=== PATIENT | female | born 1935 | race Caucasian/White ===

== ENCOUNTER 2017-08-01 13:45 | Inpatient (IN) | payer OTHER, MEDICARE ==
[~2017-08-01] VITALS: Ht 157.5 cm; Wt 59.9 kg
[2017-08-01 14:05] LABS: ABSOLUTE BASOPHIL COUNT 0 /CUMM (0.0-0.2); ABSOLUTE EOSINOPHIL COUNT 0.1 /CUMM (0.0-0.7); ABSOLUTE GRANULOCYTE CT 4.4 /CUMM (1.4-6.5); ABSOLUTE LYMPH COUNT 1.5 /CUMM (1.2-3.4); ABSOLUTE MONOCYTE COUNT 0.7 /CUMM (0.10-0.60); BASOPHIL % 0.5 % (0.0-2.0); GRANULOCYTE % 64.6 % (42.2-75.2); HEMATOCRIT 41.7 % (37-47); MEAN CORPUSCULAR HGB 28.9 PG (27.0-31.0); MEAN CORPUSCULAR HGB CONC 32.9 G/DL (33.0-37.0); MEAN CORPUSCULAR VOLUME 87.8 FL (81.0-99.0); MEAN PLATELET VOLUME 7.5 FL (7.4-10.4); PLATELET COUNT 344 /CUMM (130-400); RED BLOOD CELL CT 4.75 /CUMM (4.20-5.40); WHITE BLOOD CELL COUNT 6.8 /CUMM (4.8-10.8)
--- NOTE | 2017-08-01 14:11 | ED DYSPNEA/ASTHMA COMPLAINT ---
History of Present Illness General Chief Complaint: General Adult Stated Complaint: FROM GI, LOW O2 SATS Source: patient, family Exam Limitations: no limitations Allergies Coded Allergies: Sulfa (Sulfonamide Antibiotics) (Severe, SWELLING 08/01/17) Penicillins (Intermediate, RASH 08/01/17) Triage Note: PT BROUGHT TO ED FROM GI SUITE FOR LOW O2 SATS. PT WAS SCHEDULED FOR ROUTINE COLONOSCOPY TODAY, BUT WHEN NURSES CHECKED HER O2 SATS, THEY WERE IN THE HIGH 70'S TO LOW 80'S. ON ARRIVAL, PT'S O2 SAT 79% WITH STEADY PLETH, NO ACUTE DISTRESS NOTED, PT ABLE TO SPEAK IN FULL SENTENCES. HX OF COPD WITHOUT NEED FOR O2 AT HOME. PLACED ON 2L OF NC OXYGEN WITH IMPROVEMENT TO 90-94%. PT DENIES SOB OR CHEST PAIN; ONLY REPORTS PRODUCTIVE COUGH FOR THE LAST TWO WEEKS. AFEBRILE. Triage Nurses Notes Reviewed? yes Onset: Abrupt Duration: week(s): (2), constant, continues in ED, getting worse Timing: single episode today Severity: mild, moderate Activities at Onset: none Prior Episodes/Possible Cause: occasional episodes Associated Symptoms: cough, wheezing LMP (ages 10-50): post menopausal, unknown : No HPI: 81-year-old female past medical history of colitis, COPD presents for evaluation of hypoxia. Patient was scheduled to get a routine colonoscopy today. When she arrived she had her vitals taken and it was noted that she was hypoxic on room air to the 70s and 80s. Patient was brought in for further evaluation she did not get the colonoscopy. Patient reports that for the past 2 weeks she has had cough wheezing and shortness of breath. She states that symptoms are worse on exertion do get better at rest. She denies fevers. The cough will sometimes be productive of yellow sputum. She is a former smoker. She denies chest pain nausea vomiting sweats chills. She has been using her inhalers without much improvement. (Derick Munoz) Vital Signs & Intake/Output Vital Signs & Intake/Output Vital Signs Date Time Temp Pulse Resp B/P B/P Pulse O2 O2 Flow FiO2 Mean Ox Delivery Rate 08/01 1612 97.7 91 15 122/66 93 Nasal 2.0L Cannula 08/01 1500 96 Nasal 2.0L Cannula 08/01 1351 79 Room Air Room Air 08/01 1350 98.6 93 15 137/70 79 Room Air Room Air (Yris MOSER,Hugh Sheridan) Past History Travel History Traveled to [place] past 21 day No Medical History Any Pertinent Medical History? 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 No (Derick Munoz) Review of Systems Review of Systems Constitutional: Reports: no symptoms. EENTM: Reports: no symptoms. Respiratory: Reports: see HPI, cough, short of breath, sputum production, wheezing. Cardiovascular: Reports: no symptoms. GI: Reports: no symptoms. Genitourinary: Reports: no symptoms. Musculoskeletal: Reports: no symptoms. Skin: Reports: no symptoms. Neurological/Psychological: Reports: no symptoms. Hematologic/Endocrine: Reports: no symptoms. Immunologic/Allergic: Reports: no symptoms. All Other Systems: Reviewed and Negative (Derick Munoz) Physical Exam Physical Exam General Appearance: well developed/nourished, no apparent distress, alert, awake , thin Head: atraumatic, normal appearance Eyes: Bilateral: normal appearance, PERRL, EOMI. Ears, Nose, Throat: normal pharynx, normal ENT inspection, hearing grossly normal Neck: normal inspection, supple, full range of motion Respiratory: chest non-tender, no respiratory distress, quiet respiration, decreased breath sounds, wheezing Cardiovascular: regular rate/rhythm, normal peripheral pulses Peripheral Pulses: 2+ radial (R), 2+ radial (L) Gastrointestinal: soft, non-tender Extremities: normal inspection, normal capillary refill, normal range of motion, no edema Neurologic/Psych: no motor/sensory deficits, awake, alert, oriented x 3 Skin: intact, normal color, warm/dry Core Measures ACS in differential dx? No CVA/TIA Diagnosis No Sepsis Present: No Sepsis Focused Exam Completed? No (Derick Munoz) Progress Differential Diagnosis: asthma, AMI, bronchitis, costochondritis, CHF, COPD, pulmonary embolism, pneumonia, pneumothorax, rib fracture, unstable angina Diagnostic Imaging: Viewed by Me: Radiology Read. Discussed w/RAD: Radiology Read. Radiology Impression: PATIENT: BRICE BAPTISTE PRESENT AGE: 81 PATIENT ACCOUNT NO: [id number] : 34 LOCATION: [facility] ORDERING PHYSICIAN: Derick MCGEE SERVICE DATE: 08/01/17547 EXAM TYPE: CAT - CTA CHEST-PULMONARY EMBOLISM EXAMINATION: CT ANGIOGRAM OF THE CHEST WITH AND WITHOUT CONTRAST (CT PULMONARY ANGIOGRAM FOR PE) CLINICAL INFORMATION: Pneumonia. Hypoxia. COMPARISON: Chest x-ray most recent prior dated 08/01/2017 TECHNIQUE: Prior to contrast administration, noncontrast localization images were obtained. Subsequently, multidetector volumetric imaging was performed from the thoracic inlet to below the diaphragms following the administration of 70 mL Optiray 320 intravenous contrast. No contrast reaction reported. Sagittal, coronal, and MIP oblique sagittal reformatted images were obtained on the CT workstation, uploaded to PACS, and reviewed. Total exam dose-length product 310.89 mGy-cm. FINDINGS: QUALITY OF STUDY/CONTRAST BOLUS: Satisfactory PULMONARY ARTERIES: No central or segmental pulmonary emboli. THORACIC AORTA: Atherosclerotic disease of the aorta and mild atherosclerosis of the coronary arteries. LUNG: Emphysematous changes with upper lobe predominance. Subtle peribronchial vascular nodule right upper lobe (series 2 image 81) measuring approximately 0.5 cm. Differential possibility includes mucous plugging. Subtle peribronchial vascular nodule right lower lobe perihilar region measuring 0.7 cm (series 2 image 250). Assessment of the lower lobes is degraded by patient motion. Very bronchovascular soft tissue thickening noted in the right hilar/ infrahilar region along the bronchi. Differential possibility includes prominence of the lymphoid tissue. Atelectatic changes noted in the right base. Mild bronchiectatic changes bilateral lungs. PLEURA: No pleural effusion or pneumothorax. MEDIASTINUM: Mild cardiomegaly. Mild prominence of the lymphoid tissue suspected in right hilar and infrahilar region as detailed. There is mild prominence of the thyroid gland. Suggestion of a small right thyroid nodule. No evidence of septal bowing or right heart strain. CHEST WALL/AXILLA: No axillary or internal mammary lymphadenopathy. OSSEOUS STRUCTURES: Bony osteopenia. Scoliosis. No acute or suspicious osseous abnormality. Degenerative changes of the thoracic and lumbar spine. UPPER ABDOMEN: Large simple appearing cystic structure medial aspect left kidney measuring 4.2 cm. No reflux of contrast into the hepatic veins to suggest elevated right heart pressures. IMPRESSION: 1. There is no CTA evidence of acute pulmonary embolism. Assessment is limited in the lower lobes due to motion degradation. 2. Pulmonary emphysema. Peribronchovascular nodules right upper lobe and right lower lobe. Mild prominence of the soft tissue likely representing lymphoid tissue noted in the right hilar and infrahilar region along the bronchi. This appearance can be seen with inflammatory etiology. Neoplastic process cannot be excluded. Based on the Fleischner criteria close monitoring with follow-up CT scan in 3-6 months recommended.. 3. Underlying emphysematous changes. 4. Mild bronchiectasis. 5. Atelectatic changes posterior aspect right lower lobe. VTE: negative DICTATED BY : Tara Church MD DATE/TIME DICTATED:08/01/171543 PARK NATURALIST:CHON DATE/TIME TRANSCRIBED:08/01/171543 CONFIDENTIAL, DO NOT COPY WITHOUT APPROPRIATE AUTHORIZATION. <Electronically signed in Other Vendor System> SIGNED BY: Tara Church MD 08/01/17 1619 CXR Impression: PATIENT: BRICE BAPTISTE PRESENT AGE: 81 PATIENT ACCOUNT NO: [id number] : 34 LOCATION: [facility] ORDERING PHYSICIAN: Derick MCGEE SERVICE DATE: 08/01/17 EXAM TYPE: RAD - XRY- PORTABLE CHEST XRAY EXAMINATION: XR PORTABLE CHEST CLINICAL INFORMATION: Hypoxia and cough COMPARISON: October 25, 2009 TECHNIQUE: Portable frontal view of the chest was obtained. FINDINGS: The cardiomediastinal silhouette is unchanged with similar prominence of the right superior mediastinum likely related to vasculature. No significant cardiomegaly. There are interstitial and airspace opacities in the bilateral lower lobes. No focal pleural effusion. No acute osseous abnormality. IMPRESSION: Interstitial and airspace opacities in the bilateral lower lobes. Findings could represent pulmonary edema. Aspiration can have a similar distribution. Infectious process not entirely excluded. DICTATED BY: Wendy Kenney MD DATE/TIME DICTATED:08/01/171424 PARK NATURALIST: CHON DATE/TIME TRANSCRIBED:08/01/171424 CONFIDENTIAL, DO NOT COPY WITHOUT APPROPRIATE AUTHORIZATION. <Electronically signed in Other Vendor System> Initial ED EKG: normal sinus rhythm, LVH, LEFT ATRIAL ABN (Derick Munoz) Plan of Care: Orders Procedure Date/time Status Regular Diet 08/01 D Active Patient Data 08/01 1656 Active Add-on Test (ER Only) 08/01 1511 Active B-TYPE NATRIURETIC PEP (BNP) 08/01 1355 Complete TROPONIN LEVEL 08/01 1351 Complete D-DIMER 08/01 1351 Complete COMPREHENSIVE METABOLIC PANEL 08/01 135 Complete CBC WITHOUT DIFFERENTIAL 08/01 1351 Complete EKG 08/01 1351 Active Current Medications Sig/Nhung Start time Last Medication Dose Stop Time Status Admin Azithromycin 500 MG ONCE ONE 08/01 1645 AC (Zithromax) 08/01 1744 Sodium Chloride 250 ML (Normal Saline 0.9%) Laboratory Tests 08/01/17 1355: Anion Gap 10, Estimated GFR > 60, BUN/Creatinine Ratio 20.0, Glucose 79, Calcium 9.3, Total Bilirubin 0.6, AST 20, ALT 14, Alkaline Phosphatase 81, Troponin I < 0.01, Gli-M-Qlaieyautfz Pept 573 H, Total Protein 6.8, Albumin 3.5, Globulin 3.3, Albumin/Globulin Ratio 1.1, D-Dimer High Sensitivty 366 H, CBC w Diff NO MAN DIFF REQ, RBC 4.75, MCV 87.8, MCH 28.9, MCHC 32.9 L, RDW 15.0 H, MPV 7.5, Gran % 64.6, Lymphocytes % 22.8, Monocytes % 10.1 H, Eosinophils % 2.0, Basophils % 0.5, Absolute Granulocytes 4.4, Absolute Lymphocytes 1.5, Absolute Monocytes 0.7 H, Absolute Eosinophils 0.1, Absolute Basophils 0 Patient seen and evaluated. She was brought in from the GI suite with hypoxia. Her initial evaluation here shows a oxygen saturation of 79% on room air. No signs of wrist or distress. Patient does have diffusely diminished breath sounds with mild wheezing. Vitals otherwise stable. She has a known history of COPD reports cough and shortness of breath for 2 weeks. Labs EKG chest x-ray ordered. Chest x-ray initially suggested pulmonary edema versus infectious infiltrate. Patient's BNP is 573 she has no documented history of CHF she has no lower extremity edema. A CTA was ordered for further evaluation which was negative for PE and also did not show any pulmonary edema. The CTA did show some reactive lymphoid tissue that radiologist feels likely is related to an inflammatory process but NEOplasm is not excluded. Suspect most the patient's symptoms are coming from COPD exacerbation. Patient was medicated with DuoNeb's Solu-Medrol and Zithromax here. When oxygen is removed patient desats again to the 80s. On 2 L nasal cannula she is able to maintain a saturation in the mid 90s. Patient will be admitted to the hospital for further evaluation of a COPD exacerbation. (Derick Munoz) (Yris MOSER,Hugh Sheridan) Departure Departure Disposition: STILL A PATIENT Condition: Stable Clinical Impression Primary Impression: COPD exacerbation Referrals: Shankar MOSER,Munir Ramsey (PCP/Family) Departure Forms: Customer Survey General Discharge Information Admission Note Spoke With: Noy Fajardo MD Documentation of Exam: Documentation of any treatments & extenuating circumstances including Concerns Regarding Discharge (functional status, medication knowledge or non-compliance, living conditions, etc.) that warrant an admission rather than observation: She has hypoxic to 80% on room air. [DuoNeb's, IV steroids, IV antibiotics, pulmonology, oxygen setup, medication adjustment] (Derick Munoz) PA/COMPLEX DIRECTOR Co-Sign Statement Statement: ED Attending supervision documentation- [X] I saw and evaluated the patient. I have also reviewed all the pertinent lab results and diagnostic results. I agree with the findings and the plan of care as documented in the PA's/COMPLEX DIRECTOR's documentation. Patient presents for evaluation of low oxygen saturation in the preprocedural evaluation for colonoscopy. Physical examination reveals a comfortable appearing woman with a normal oxygen saturation but bilaterally diminished breath sounds. [] I have reviewed the ED Record and agree with the PA's/COMPLEX DIRECTOR's documentation. [] Additions or exceptions (if any) to the PAs/COMPLEX DIRECTOR's note and plan are summarized below: [] (Yris MOSER,Hugh Sheridan) Critical Care Note Critical Care Note Critical Care Time: 75-104 min (Derick Munoz)
--- NOTE | 2017-08-01 14:39 | RADIOLOGY REPORT ---
EXAMINATION: XR PORTABLE CHEST CLINICAL INFORMATION: Hypoxia and cough COMPARISON: October 25, 2009 TECHNIQUE: Portable frontal view of the chest was obtained. FINDINGS: The cardiomediastinal silhouette is unchanged with similar prominence of the right superior mediastinum likely related to vasculature. No significant cardiomegaly. There are interstitial and airspace opacities in the bilateral lower lobes. No focal pleural effusion. No acute osseous abnormality. IMPRESSION: Interstitial and airspace opacities in the bilateral lower lobes. Findings could represent pulmonary edema. Aspiration can have a similar distribution. Infectious process not entirely excluded.
--- NOTE | 2017-08-01 16:19 | CT SCAN REPORT ---
EXAMINATION: CT ANGIOGRAM OF THE CHEST WITH AND WITHOUT CONTRAST (CT PULMONARY ANGIOGRAM FOR PE) CLINICAL INFORMATION: Pneumonia. Hypoxia. COMPARISON: Chest x-ray most recent prior dated 08/01/2017 TECHNIQUE: Prior to contrast administration, noncontrast localization images were obtained. Subsequently, multidetector volumetric imaging was performed from the thoracic inlet to below the diaphragms following the administration of 70 mL Optiray 320 intravenous contrast. No contrast reaction reported. Sagittal, coronal, and MIP oblique sagittal reformatted images were obtained on the CT workstation, uploaded to PACS, and reviewed. Total exam dose-length product 310.89 mGy-cm. FINDINGS: QUALITY OF STUDY/CONTRAST BOLUS: Satisfactory PULMONARY ARTERIES: No central or segmental pulmonary emboli. THORACIC AORTA: Atherosclerotic disease of the aorta and mild atherosclerosis of the coronary arteries. LUNG: Emphysematous changes with upper lobe predominance. Subtle peribronchial vascular nodule right upper lobe (series 2 image 81) measuring approximately 0.5 cm. Differential possibility includes mucous plugging. Subtle peribronchial vascular nodule right lower lobe perihilar region measuring 0.7 cm (series 2 image 250). Assessment of the lower lobes is degraded by patient motion. Very bronchovascular soft tissue thickening noted in the right hilar/infrahilar region along the bronchi. Differential possibility includes prominence of the lymphoid tissue. Atelectatic changes noted in the right base. Mild bronchiectatic changes bilateral lungs. PLEURA: No pleural effusion or pneumothorax. MEDIASTINUM: Mild cardiomegaly. Mild prominence of the lymphoid tissue suspected in right hilar and infrahilar region as detailed. There is mild prominence of the thyroid gland. Suggestion of a small right thyroid nodule. No evidence of septal bowing or right heart strain. CHEST WALL/AXILLA: No axillary or internal mammary lymphadenopathy. OSSEOUS STRUCTURES: Bony osteopenia. Scoliosis. No acute or suspicious osseous abnormality. Degenerative changes of the thoracic and lumbar spine. UPPER ABDOMEN: Large simple appearing cystic structure medial aspect left kidney measuring 4.2 cm. No reflux of contrast into the hepatic veins to suggest elevated right heart pressures. IMPRESSION: 1. There is no CTA evidence of acute pulmonary embolism. Assessment is limited in the lower lobes due to motion degradation. 2. Pulmonary emphysema. Peribronchovascular nodules right upper lobe and right lower lobe. Mild prominence of the soft tissue likely representing lymphoid tissue noted in the right hilar and infrahilar region along the bronchi. This appearance can be seen with inflammatory etiology. Neoplastic process cannot be excluded. Based on the Fleischner criteria close monitoring with follow-up CT scan in 3-6 months recommended.. 3. Underlying emphysematous changes. 4. Mild bronchiectasis. 5. Atelectatic changes posterior aspect right lower lobe. VTE: negative
--- NOTE | 2017-08-01 17:09 | History & Physical ---
Shane Simpson MD 08/01/17 3062: General Information and HPI MD Statement: I have seen and personally examined BRICE BAPTISTE and documented this H&P. The patient is a 81 year old F who presented with a patient stated chief complaint of cough. Source of Information: patient, old records Exam Limitations: no limitations History of Present Illness: 81 year old female with past medical history significant for former smoker, osteoporosis, cervical fusion, h/o colitis on mesalamine (also reported apthous ulcer Crohn's?), primary hyperparathyroidism on sensipar, diverticulosis, and colonic polyps was brought in by ambulance after being found to be hypoxic on vitals this morning prior to a follow up colonoscopy. The patient reportedly saw her primary care physician last on Jul 08 2017 and was normal, without hypoxia or any complaints and the next day developed a cough. She denied any prodromal symptoms of URI, fevers or chills. Her cough is non productive, an intermittent in nature. It causes paroxysms of coughing every 2-3 hours but other days she feels okay for the past three weeks. She has noticed some new exertional dyspnea over this same time period. She was diagnosed with COPD [place] [address] Chaparro. She has smoked for 70+ pack years, states she quit ten years ago, but her last cigarette was six months ago. She does not use any home oxygen and states she has never been sick. She has inhaled corticosteroids and albuterol inhalers but has only used it once during the past three weeks. Her review of systems is negative for fevers, chest pain, orthopnea, abdominal pain, N/V/D, and dysuria. Her only other complaint is malaise. She reports that she complete the bowel prep last night into this morning and felt terrible afterwards. She states her cough seemed worse this morning after the bowel prep but she felt compelled to complete the procedure. She was found to be hypoxic prior to colonoscopy and sent to the emergency department, where her SpO2 was 79% on room air and quickly improved on 2L supplemental oxygen. She had chest x-ray notable for bibasilar opacities and negative chest CTA. She was treated with solumedrol, azithromycin, nebulized albuterol and ipatropium and admitted to general medicine for management of COPD exacerbation and acute hypoxemic respiratory failure. 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 MOTHER FH: colon cancer SISTER FH: breast cancer SON FH: throat cancer Psychosocial History Primary Language: Korean Smoking Status: Former Smoker (70+ packyears) ETOH Use: denies use Illicit Drug Use: denies illicit drug use Functional Ability ADLs Independent: dressing, eating, toileting, bathing. Ambulation: independent IADLs Independent: shopping, housework, finances, food prep, telephone, transportation , medication admin. Review of Systems Review of Systems Constitutional: Reports: malaise. Denies: chills, fever. EENTM: Denies: nasal congestion, nasal pain, throat pain. Cardiovascular: Denies: chest pain, palpitations. Respiratory: Reports: cough, short of breath. Denies: sputum production. GI: Denies: abdominal pain, constipation, diarrhea, nausea, vomiting. Genitourinary: Denies: dysuria, frequency. Musculoskeletal: Denies: back pain, neck pain. Skin: Reports: no symptoms. Neurological/Psychological: Reports: no symptoms. Denies: headache, weakness. Hematologic/Endocrine: Reports: no symptoms. Immunologic/Allergic: Reports: no symptoms. All Other Systems: Reviewed and Negative Exam & Diagnostic Data Last 24 Hrs of Vital Signs/I&O Vital Signs Date Time Temp Pulse Resp B/P B/P Pulse O2 O2 Flow FiO2 Mean Ox Delivery Rate 08/01 1759 97.8 93 15 135/82 93 Room Air Room Air 08/01 1612 97.7 91 15 122/66 93 Nasal 2.0L Cannula 08/01 1500 96 Nasal 2.0L Cannula 08/01 1351 79 Room Air Room Air 08/01 1350 98.6 93 15 137/70 79 Room Air Room Air Intake & Output 08/01 1600 08 0800 0608 0000 Intake Total 0 Output Total Balance 0 Intake, Oral 0 Patient 58.967 kg Weight Weight Reported by Patient Measurement Method Physical Exam General Appearance Alert, Oriented X3, Cooperative, No Acute Distress HEENT Atraumatic, PERRLA, EOMI, Mucous Membr. moist/pink Neck Supple, cervical fusion scar posteriorly, limited ROM Cardiovascular Regular Rate, Normal S1, Normal S2, No Murmurs Lungs bibasilar rhonchi Abdomen Normal Bowel Sounds, Soft, No Tenderness, No Masses Extremities No Clubbing, No Cyanosis, No Edema, No Tenderness/Swelling Last 24 Hrs of Labs/Raciel: Laboratory Tests 08/01/17 1355: Anion Gap 10, Estimated GFR > 60, BUN/Creatinine Ratio 20.0, Glucose 79, Calcium 9.3, Total Bilirubin 0.6, AST 20, ALT 14, Alkaline Phosphatase 81, Troponin I < 0.01, [id number]-J-Dnyuvtkpnhx Pept 573 H, Total Protein 6.8, Albumin 3.5, Globulin 3.3, Albumin/Globulin Ratio 1.1, D-Dimer High Sensitivty 366 H, CBC w Diff NO MAN DIFF REQ, RBC 4.75, MCV 87.8, MCH 28.9, MCHC 32.9 L, RDW 15.0 H, MPV 7.5, Gran % 64.6, Lymphocytes % 22.8, Monocytes % 10.1 H, Eosinophils % 2.0, Basophils % 0.5, Absolute Granulocytes 4.4, Absolute Lymphocytes 1.5, Absolute Monocytes 0.7 H, Absolute Eosinophils 0.1, Absolute Basophils 0 Diagnostic Data EKG Results sinus rhythm, LVH, no ischemic changes CXR Results Interstitial and airspace opacities in the bilateral lower lobes. Findings could represent pulmonary edema. Aspiration can have a similar distribution. Infectious process not entirely excluded. Other Results Chest CTA IMPRESSION: 1. There is no CTA evidence of acute pulmonary embolism. Assessment is limited in the lower lobes due to motion degradation. 2. Pulmonary emphysema. Peribronchovascular nodules right upper lobe and right lower lobe. Mild prominence of the soft tissue likely representing lymphoid tissue noted in the right hilar and infrahilar region along the bronchi. This appearance can be seen with inflammatory etiology. Neoplastic process cannot be excluded. Based on the Fleischner criteria close monitoring with follow-up CT scan in 3-6 months recommended.. 3. Underlying emphysematous changes. 4. Mild bronchiectasis. 5. Atelectatic changes posterior aspect right lower lobe. VTE: negative Assessment/Plan Assessment: 81 year old female with past medical history significant for former smoker, osteoporosis, cervical fusion, h/o colitis on mesalamine (also reported apthous ulcer Crohn's?), primary hyperparathyroidism on sensipar, diverticulosis, and colonic polyps was brought in by ambulance after being found to be hypoxic on vitals this morning prior to a follow up colonoscopy. She has had a subacute upper respiratory infection for the past three with cough and exertional dyspnea , admitted for management of COPD exacerbation and hypoxic respiratory failure. Acute hypoxemic respiratory failure: secondary to copd exacerbation, possible pneumonia TRC evalutation, oxygen set up Titrate supplemental oxygen to an SpO2 > 92% Former smoker 70+ pack years CTA Chest There is no CTA evidence of acute pulmonary embolism. Assessment is limited in the lower lobes due to motion degradation. Pulmonary emphysema. Peribronchovascular nodules right upper lobe and right lower lobe. Mild prominence of the soft tissue likely representing lymphoid tissue noted in the right hilar and infrahilar region along the bronchi. This appearance can be seen with inflammatory etiology. Neoplastic process cannot be excluded. Based on the Fleischner criteria close monitoring with follow-up CT scan in 3-6 months recommended Patient will need to be reimaged to follow up pulmonary nodules as an outpatient COPD exacerbation: Possible pneumonia likely community acquired, continue azithromycin x 5 days although aspiration is possible, pt reports worsening yesterday during bowel prep but overall history is more consistent with a subacute process Elevated bicarbonate on chemistry, consistent with chronic CO2 retention Consider ABG if patient worsens Chest s-ttz-Qzetzweonqci and airspace opacities in the bilateral lower lobes. Findings could represent pulmonary edema. Aspiration can have a similar distribution. Infectious process not entirely excluded. Continue nebulized albuterol and ipratropium Received 125mg iv solumedrol in the ed, start 40mg q8h tomorrow Obtain sputum culture, induce if necessary Mucinex, tessalon pearls for cough Continue spiriva Outpatient pulmonology referral Primary hyperparathyroidism Calcium 9.3, albumin 3.5 Continue sensipar 30mg daily Colitis: Continue mesalamine Family history of colon cancer, no dysplasia on 2014 pathology Outpatient GI follow up for colonoscopy Chronic pain: Continue vicodin and gabapentin 600mg po tid Heart healthy diet DVT ppx-lovenox 40mg subcutanous daily Full code As Ranked By This Provider Problem List: 1. COPD exacerbation 2. Acute hypoxemic respiratory failure Core Measures/Misc (11/10) Acute Coronary Syndrome ACS Diagnosis: No Congestive Heart Failure Congestive Heart Failure Diagnosis No Cerebrovascular Accident CVA/TIA Diagnosis: No VTE (View Protocol) VTE Risk Factors Age>40 No Mechanical VTE Prophylaxis d/t N/A MechProphylax Ordered No VTE Pharm Prophylaxis d/t NA PharmProphylax ordered Sepsis (View protocol) Sepsis Present: No If YES complete Sepsis Event Note If YES complete Sepsis Event Note TanaNoy 08/01/17 1713: Core Measures/Misc (11/10) Sepsis (View protocol) If YES complete Sepsis Event Note If YES complete Sepsis Event Note Attending MD Review Statement Attending Statement Attending MD Statement: examined this patient, discuss w/resident/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 She has increased cough and sob on exertion. She felt cold like symptoms. CTA chest no PE, no pneumonia. Has lymphoadnepathy likely reactive. pro bnp 500. Vital and labs imaging noted. Use of accessory muscles+. Patient is admitted to gen/med for COPD exacerbation 2/2 bronchitis. Patient received solu-medrol in ER with improvement. Start iv steroids, Bronchodilators, needs outpatient referral for pulmonary and another CT chest in 3-6 months as outpatient. Resume home meds. gi/dvt prophylaxis Debi MOSER,Stephania 08/01/17 1721: General Information and HPI Allergies/Medications Home Med list Cinacalcet HCl (Sensipar) 30 MG TABLET 1 TAB PO DAILY HYPERPARATHYROIDISM ( Reported) Furosemide 40 MG TABLET 1 TAB PO Friday LEG SWELLING (Reported) Gabapentin 600 MG TABLET 1 TAB PO TID NEUROPATHY (Reported) Hydrocodone/Acetaminophen (Vicodin Es 7.5-300 MG Tablet) 7.5 MG-300 MG TABLET 1 TAB PO BID PRN BONE PAINS (Reported) Mesalamine (Apriso) 0.375 GRAM CAP.ER.24H 4 CAP PO DAILY COLITIS (Reported) Core Measures/Misc (11/10) Sepsis (View protocol) If YES complete Sepsis Event Note If YES complete Sepsis Event Note Resident Review Statement Resident Statement: examined this patient, discussed with summer intern, agreed with summer intern, discussed with family, reviewed EMR data (avail), discussed with nursing , discussed with case mgmt, reviewed images, amended to note Other Findings: patient is a 81 YO F with PMH signficant for COPD, hyperparathyroidism, chrons disease, colonic polyps, neuropathy, venous insufficiency presented to the [place] ER after found to have desaturation prior to colonoscopy. Patient did have productive cough with shortness of breath for the past 2 weeks, waxing and wanning. She was never admitted in the past, good functional status at baseline, on ventolin/spiriva at home. Not actively following up with any philatelic consultant. Moves to [place] and [place] every yr. VS at presentation - temp 98.3, HR 93, BP 137/70mmHg, saturating well on 2L. Physical exam did show decreased breath sounds at bases. Pertinent labs normal white count, chem panel - normal. Imaging - CXR and CT angio - ruled out PE and pneumonia. Pulmnoary nodules present. Problem list 1. COPD exacerbation 2. Hyperparathyroidism 3. Venous insufficiency 4. Chrons disease 5. Neuropathy Plan admit to general medicine floor COPD exacerbation Saturating 79% on RA. IV methylprednisone, azithromycin, TRC/Nebs. Pulmonology follow up as outpatient. Hyperparathyroidism: continue sensipar Venous insufficiency: continue furosemide 40mg 3-4 times/week Chrons disease: continue aprisol Needs follow up CT for pulmonary nodule - Peribronchiolar right upper lobe/lower lobe 0.5cm/0.7cm respectively. DVT prophylaxis SC heparin Code status full code
[2017-08-01] MEDS ORDERED: GABAPENTIN600 M1 PO (17:32)
[2017-08-01] MEDS ORDERED: SENSIPAR30 M1 PO (17:33)
[2017-08-01] MEDS ORDERED: APRISO0.375 G1 PO (17:33)
[2017-08-01] MEDS ORDERED: VICODIN ES 7.51 EACH PO (17:34)
[2017-08-01] MEDS ORDERED: FUROSEMIDE40 M1 PO (17:36)
[2017-08-01 19:02] VITALS: BP 146/80
[2017-08-01 21:33] VITALS: BP 124/69
--- NOTE | 2017-08-02 05:22 | PN- Housestaff ---
Subjective Follow-up For: COPD exacerbation acute hypoxemic respiratory failure Subjective: oxygen saturation > 90% on 2L supplemental oxygen persistent cough afebrile no new complaints Review of Systems Constitutional: Reports: see HPI. Objective Last 24 Hrs of Vital Signs/I&O Vital Signs Date Time Temp Pulse Resp B/P B/P Pulse O2 O2 Flow FiO2 Mean Ox Delivery Rate 08/02 0000 98 Nasal 2.0L Cannula 08/013 98.0 91 18 124/69 90 08/01 1955 Nasal 2.0L Cannula 08/01 1912 93 Nasal 2.0L Cannula 08/01 1902 97.9 103 18 146/80 93 08/01 1759 97.8 93 15 135/82 93 Room Air Room Air 08/01 1612 97.7 91 15 122/66 93 Nasal 2.0L Cannula 08/01 1500 96 Nasal 2.0L Cannula 08/01 1351 79 Room Air Room Air 08/01 1350 98.6 93 15 137/70 79 Room Air Room Air Intake & Output 08/02 0800 08/02 0000 08/01 1600 Intake Total 120 0 Output Total 300 Balance -180 0 Intake, IV 0 Intake, Oral 120 0 Output, Urine 300 Patient 59.874 kg 58.967 kg Weight Weight Bed scale Reported by Patient Measurement Method Physical Exam General Appearance: Alert, Oriented X3, Cooperative, No Acute Distress Cardiovascular: Regular Rate, Normal S1, Normal S2, No Murmurs Lungs: bibasilar rhonchi Abdomen: Normal Bowel Sounds, Soft, No Tenderness, No Masses Extremities: No Clubbing, No Cyanosis, No Edema, Normal Pulses Current Medications: Current Medications Sig/Nhung Start time Last Medication Dose Route Stop Time Status Admin Acetaminophen 650 MG Q6P PRN 08/01 1845 AC PO Albuterol Sulfate 3 ML Q4P PRN 08/02 1999 AC INH Albuterol Sulfate 3 ML ONCE ONE 08/01 1430 DC 08/01 INH 08/01 1431 1513 Azithromycin 500 MG DAILY@1700 08/02 1700 AC Sodium Chloride 250 ML IV Azithromycin 500 MG ONCE ONE 08/01 1645 DC 08/01 Sodium Chloride 250 ML IV 08/01 1744 1716 Benzonatate 100 MG TID 08/01 1734 AC 08/01 PO 2012 Cinacalcet 30 MG DAILY 08/02 899 AC PO Furosemide 40 MG 08/04 09 AC PO Gabapentin 600 MG TID 08/01 2099 AC 08/01 PO 2024 Guaifenesin 600 MG Q12 08/01 2099 AC 08/01 PO 2024 Heparin Sodium 0 .STK-MED ONE 08/01 1755 DC (Porcine) .ROUTE Heparin Sodium 5,000 UNIT Q8 08/01 1727 AC 08/02 (Porcine) SC 0530 Hydrocodone Bitart/ 1 TAB Q6P PRN 08/02 1999 AC 08/02 Acetaminophen PO 0548 Ipratropium [place] 2.5 ML Q4P PRN 08/02 1999 AC INH Ipratropium [place] 2.5 ML ONCE ONE 08/01 1430 DC 08/01 INH 08/01 1431 1513 Mesalamine 1,000 MG 4 TIMES/DAY 08/02 899 UNVr PO Methylprednisolone 40 MG Q8 08/01 220 AC 08/02 IV 0530 Methylprednisolone 0 .STK-MED ONE 08/01 1709 DC .ROUTE Methylprednisolone 125 MG ONCE ONE 08/01 1645 DC 08/01 IV 08/01 1646 1716 Oxycodone/ 1 TAB Q6P PRN 08/01 1845 DC Acetaminophen PO Last 24 Hrs of Lab/Raciel Results Last 24 Hrs of Labs/Mics: Laboratory Tests 08/01/17 1355: Anion Gap 10, Estimated GFR > 60, BUN/Creatinine Ratio 20.0, Glucose 79, Calcium 9.3, Total Bilirubin 0.6, AST 20, ALT 14, Alkaline Phosphatase 81, Troponin I < 0.01, Jtc-[id number]-Twgtfhwhdsw Pept 573 H, Total Protein 6.8, Albumin 3.5, Globulin 3.3, Albumin/Globulin Ratio 1.1, D-Dimer High Sensitivty 366 H, CBC w Diff NO MAN DIFF REQ, RBC 4.75, MCV 87.8, MCH 28.9, MCHC 32.9 L, RDW 15.0 H, MPV 7.5, Gran % 64.6, Lymphocytes % 22.8, Monocytes % 10.1 H, Eosinophils % 2.0, Basophils % 0.5, Absolute Granulocytes 4.4, Absolute Lymphocytes 1.5, Absolute Monocytes 0.7 H, Absolute Eosinophils 0.1, Absolute Basophils 0 Microbiology 08/01 2199 URINE ROUT: Legionella Antigen - COMP 08/01 2199 URINE ROUT: Streptococcus pneumoniae Antigen (M - COMP 08/02 1903 LOWER RESP: Respiratory Culture - COLB 08/02 1903 LOWER RESP: Gram Stain - COLB Assessment/Plan Assessment: 81 year old female with past medical history significant for former smoker, osteoporosis, cervical fusion, h/o colitis on mesalamine (also reported apthous ulcer Crohn's?), primary hyperparathyroidism on sensipar, diverticulosis, and colonic polyps was brought in by ambulance after being found to be hypoxic on vitals this morning prior to a follow up colonoscopy. She has had a subacute upper respiratory infection for the past three with cough and exertional dyspnea , admitted for management of COPD exacerbation and hypoxic respiratory failure. Acute hypoxemic respiratory failure: secondary to copd exacerbation, possible pneumonia TRC evalutation, oxygen set up Titrate supplemental oxygen to an SpO2 > 92% Former smoker 70+ pack years CTA Chest There is no CTA evidence of acute pulmonary embolism. Assessment is limited in the lower lobes due to motion degradation. Pulmonary emphysema. Peribronchovascular nodules right upper lobe and right lower lobe. Mild prominence of the soft tissue likely representing lymphoid tissue noted in the right hilar and infrahilar region along the bronchi. This appearance can be seen with inflammatory etiology. Neoplastic process cannot be excluded. Based on the Fleischner criteria close monitoring with follow-up CT scan in 3-6 months recommended Patient will need to be reimaged to follow up pulmonary nodules as an outpatient COPD exacerbation: Possible pneumonia likely community acquired, continue azithromycin x 5 days although aspiration is possible, pt reports worsening yesterday during bowel prep but overall history is more consistent with a subacute process Elevated bicarbonate on chemistry, consistent with chronic CO2 retention Consider ABG if patient worsens Chest o-cgc-Zhcxpdiqlmxi and airspace opacities in the bilateral lower lobes. Findings could represent pulmonary edema. Aspiration can have a similar distribution. Infectious process not entirely excluded. Continue nebulized albuterol and ipratropium solumedrol 40mg iv q8h, plan to titrate down over the weekend Obtain sputum culture, induce if necessary Legionella and strep pneumo urinary antigens negative Mucinex, tessalon pearls for cough Continue spiriva Outpatient pulmonology referral Primary hyperparathyroidism Calcium 9.3, albumin 3.5 Continue sensipar 30mg daily Colitis: Continue mesalamine Family history of colon cancer, no dysplasia on 2013 pathology Outpatient GI follow up for colonoscopy Chronic pain: Continue vicodin and gabapentin 600mg po tid Heart healthy diet DVT ppx-lovenox 40mg subcutanous daily Full code Problem List: 1. Acute hypoxemic respiratory failure 2. COPD exacerbation Pain Ratin Pain Location: n/a Pain Goal: Pain 4 or less Pain Plan: prn Tomorrow's Labs & Rationales: none
[2017-08-02 06:00] VITALS: BP 122/76
[2017-08-02 08:32] LABS: ABSOLUTE BASOPHIL COUNT 0 /CUMM (0.0-0.2); ABSOLUTE EOSINOPHIL COUNT 0 /CUMM (0.0-0.7); ABSOLUTE GRANULOCYTE CT 3.5 /CUMM (1.4-6.5); ABSOLUTE LYMPH COUNT 0.5 /CUMM (1.2-3.4); ABSOLUTE MONOCYTE COUNT 0 /CUMM (0.10-0.60); BASOPHIL % 0.1 % (0.0-2.0); EOSINOPHIL % 0 % (0-5); GRANULOCYTE % 85.5 % (42.2-75.2); HEMATOCRIT 42.1 % (37-47); MEAN CORPUSCULAR HGB 28.4 PG (27.0-31.0); MEAN CORPUSCULAR HGB CONC 32.1 G/DL (33.0-37.0); MEAN CORPUSCULAR VOLUME 88.4 FL (81.0-99.0); MEAN PLATELET VOLUME 7.8 FL (7.4-10.4); PLATELET COUNT 370 /CUMM (130-400); RBC DISTRIBUTION WIDTH 14.8 % (11.5-14.5); RED BLOOD CELL CT 4.76 /CUMM (4.20-5.40); WHITE BLOOD CELL COUNT 4.1 /CUMM (4.8-10.8)
--- NOTE | 2017-08-02 08:33 | PN- Att Addend ---
Attending Addendum Attending Brief Note Patient seen and examined. She reports feeling better compared to presentation. Continues complain of shortness of breath with exertion. Denies chest pain. Denies palpitations. She is afebrile and hemodynamically stable. Maintaining saturation on 2 L of oxygen. Vital Signs Date Time Temp Pulse Resp B/P B/P Pulse O2 O2 Flow FiO2 Mean Ox Delivery Rate 08/02 0600 97.7 95 22 122/76 90 Nasal 2.0L Cannula 08/02 0000 98 Nasal 2.0L Cannula 08/01 2133 98.0 91 18 124/69 90 /08 1955 Nasal 2.0L Cannula 08/01 1912 93 Nasal 2.0L Cannula / 1902 97.9 103 18 146/80 93 06/08 1759 97.8 93 15 135/82 93 Room Air Room Air 08/01 1612 97.7 91 15 122/66 93 Nasal 2.0L Cannula 08/01 1500 96 Nasal 2.0L Cannula 08/01 1351 79 Room Air Room Air 08/01 1350 98.6 93 15 137/70 79 Room Air Room Air General appearance: Well-developed and not in any acute distress. HEENT: Anicteric, no pallor, pupils equal and reactive. Neck: Supple with no jugular venous distention. Heart: S1-S2 regular with no audible murmur. Lungs: Adequate air entry with diffuse rhonchi bilaterally Abdomen: Nondistended with normal bowel sounds. Soft, nontender with no palpable masses. Extremities: No pedal edema. No cyanosis. Skin: Intact Laboratory Tests 08/02/17 0729: Anion Gap 8, Estimated GFR > 60, BUN/Creatinine Ratio 27.5 H, CBC w Diff Pending, WBC Pending, RBC Pending, Hgb Pending, Hct Pending, MCV Pending, MCH Pending, MCHC Pending, RDW Pending, Plt Count Pending, MPV Pending 08/01/17 1355: Anion Gap 10, Estimated GFR > 60, BUN/Creatinine Ratio 20.0, Glucose 79, Calcium 9.3, Total Bilirubin 0.6, AST 20, ALT 14, Alkaline Phosphatase 81, Troponin I < 0.01, Iev-J-Aupvhhiomuw Pept 573 H, Total Protein 6.8, Albumin 3.5, Globulin 3.3, Albumin/Globulin Ratio 1.1, D-Dimer High Sensitivty 366 H, CBC w Diff NO MAN DIFF REQ, RBC 4.75, MCV 87.8, MCH 28.9, MCHC 32.9 L, RDW 15.0 H, MPV 7.5, Gran % 64.6, Lymphocytes % 22.8, Monocytes % 10.1 H, Eosinophils % 2.0, Basophils % 0.5, Absolute Granulocytes 4.4, Absolute Lymphocytes 1.5, Absolute Monocytes 0.7 H, Absolute Eosinophils 0.1, Absolute Basophils 0 Microbiology 08/01 2199 URINE ROUT: Legionella Antigen - COMP 08/01 2199 URINE ROUT: Streptococcus pneumoniae Antigen (M - COMP 08/02 1903 LOWER RESP: Respiratory Culture - COLB 08/02 1903 LOWER RESP: Gram Stain - COLB Problems: 1. COPD exacerbation 2. Mild bronchiectasis on chest CT. No evidence of pneumonia on chest CT. 3. Atelectasis on chest CT and right upper lobe. 4. Inflammatory bowel disease; query Crohn's disease 5. Primary hyperparathyroidism. 6. Chronic pain syndrome Plan: -Continue bronchodilator therapy. Continue systemic steroid therapy at current dose. If she is improving overnight dose will be decreased to every 12 hours of Solu-Medrol. -Continue azithromycin for anti-inflammatory properties. Change to oral route. -If patient spikes fever or becomes clinically toxic consider antibiotic therapy for Pseudomonas due to her mild bronchiectasis. -Wean off oxygen supplementation as tolerated. Mobilize patient. -Continue her mesalamine. -Continue her chronic pain regimen
[2017-08-02 15:01] VITALS: BP 110/60
[2017-08-02 21:40] VITALS: BP 148/70
[2017-08-03 06:09] VITALS: BP 140/80
--- NOTE | 2017-08-03 08:44 | PN- Housestaff ---
Bart MOSER,Fred 08/03/17 0844: Subjective Follow-up For: COPD Exacerbation Acute Hypoxic Respiratory Failure Subjective: Patient was seen and examined today. Reports continued nonproductive cough. Patient reports breathing has improved. Patient desatted while walking around the floor. Patient stressed that she is in her current state of health due to her recent colonoscopy prep and aspirating the prep. No acute events overnight. Review of Systems Constitutional: Reports: see HPI. Objective Last 24 Hrs of Vital Signs/I&O Vital Signs Date Time Temp Pulse Resp B/P B/P Pulse O2 O2 Flow FiO2 Mean Ox Delivery Rate 08/03 1600 93 Nasal 1.5L Cannula 08/03 1443 98.1 91 20 120/62 93 Nasal Cannula 08/03 1400 93 Nasal 1.5L Cannula 08/03 1358 90 Nasal 1.0L Cannula 08/03 1356 88 Room Air 08/03 1106 93 Nasal 1.5L Cannula 08/03 1030 93 Nasal 1.5L Cannula 08/03 0800 95 Nasal 2.0L Cannula 08/03 0609 97.5 81 20 140/80 95 08/03 0000 Nasal 2.0L Cannula 08/02 2140 98.2 100 16 148/70 93 Nasal 2.0L Cannula Intake & Output 08/03 1600 08/03 0800 08/03 0000 Intake Total 860 500 Output Total Balance 860 500 Intake, IV 20 Intake, Oral 840 500 Physical Exam General Appearance: Alert, Cooperative, No Acute Distress Skin: No Rashes HEENT: Atraumatic, Mucous Membr. moist/pink Cardiovascular: Regular Rate, Normal S1, Normal S2 Lungs: Clear to Auscultation, Normal Air Movement Abdomen: Normal Bowel Sounds, Soft, No Tenderness Neurological: Normal Speech, Cranial Nerves 3-12 NL Current Medications: Current Medications Sig/Nhung Start time Last Medication Dose Route Stop Time Status Admin Acetaminophen 650 MG Q6P PRN 08/01 1845 AC PO Albuterol Sulfate 3 ML BID 08/03 2100 AC INH Albuterol Sulfate 3 ML Q4P PRN 08/01 2000 DC 08/03 INH 1106 Azithromycin 500 MG DAILY 08/03 899 AC 08/03 PO 0840 Benzonatate 100 MG TID 08/01 1734 AC 08/03 PO 1349 Cinacalcet 30 MG DAILY 08/02 899 AC 08/03 PO 0841 Furosemide 40 MG 08/04 09 AC PO Gabapentin 600 MG TID 08/01 2099 AC 08/03 PO 1349 Guaifenesin 600 MG Q12 08/01 2099 AC 08/03 PO 0841 Heparin Sodium 5,000 UNIT Q8 08/01 1727 AC 08/03 (Porcine) SC 1349 Hydrocodone Bitart/ 1 TAB Q6P PRN 08/02 1999 AC 08/03 Acetaminophen PO 1349 Ipratropium [place] 2.5 ML BID 08/03 2099 AC INH Ipratropium [place] 2.5 ML Q4P PRN 08/02 1999 DC 08/03 INH 1106 Mesalamine 1,000 MG 4 TIMES/DAY 08/02 899 AC 08/03 PO 1349 Methylprednisolone 40 MG BID 08/03 2099 r IV 08/030 Methylprednisolone 40 MG Q8 08/01 2199 DC 08/03 IV 1349 Prednisone 40 MG DAILY 08/04 09 UNVr PO Assessment/Plan Assessment: 81 year old female with past medical history significant for former smoker, osteoporosis, cervical fusion, h/o colitis on mesalamine (also reported apthous ulcer Crohn's?), primary hyperparathyroidism on sensipar, diverticulosis, and colonic polyps was brought in by ambulance after being found to be hypoxic on vitals this morning prior to a follow up colonoscopy. She has had a subacute upper respiratory infection for the past three with cough and exertional dyspnea , admitted for management of COPD exacerbation and hypoxic respiratory failure. 1. Acute hypoxemic respiratory failure 2/2 COPD exacerbation in setting of aspiration IV Solu-medrol tapered down to BID, will switch to PO prednisone tomorrow Patient continues to desat off oxygen, will likely require home oxygen TRC/DuoNeb Continue oxygen supplementation and wean as tolerated to maintain O2 sat of >92 @ Former smoker 70+ pack years Continue azithromycin x 5 days 2. CTA Chest There is no CTA evidence of acute pulmonary embolism. Assessment is limited in the lower lobes due to motion degradation. Pulmonary emphysema. Peribronchovascular nodules right upper lobe and right lower lobe. Mild prominence of the soft tissue likely representing lymphoid tissue noted in the right hilar and infrahilar region along the bronchi. This appearance can be seen with inflammatory etiology. Neoplastic process cannot be excluded. Based on the Fleischner criteria close monitoring with follow-up CT scan in 3-6 months recommended Patient will need to be reimaged to follow up pulmonary nodules as an outpatient Chest [id number] and airspace opacities in the bilateral lower lobes. Findings could represent pulmonary edema. Aspiration can have a similar distribution. Infectious process not entirely excluded. Continue nebulized albuterol and ipratropium solumedrol 40mg iv q8h, plan to titrate down over the weekend Obtain sputum culture, induce if necessary Legionella and strep pneumo urinary antigens negative Mucinex, tessalon pearls for cough Continue spiriva Outpatient pulmonology referral Primary hyperparathyroidism Calcium 9.3, albumin 3.5 Continue sensipar 30mg daily Colitis: Continue mesalamine Family history of colon cancer, no dysplasia on 2013 pathology Outpatient GI follow up for colonoscopy Chronic pain: Continue vicodin and gabapentin 600mg po tid Heart healthy diet DVT ppx-lovenox 40mg subcutanous daily Full code Problem List: 1. Acute hypoxemic respiratory failure 2. COPD exacerbation Pain Ratin Pain Location: n/a Pain Goal: Remain pain free Pain Plan: n/a Tomorrow's Labs & Rationales: none Krysta Espana MD 08/03/17 1002: Attending MD Review Statement Attending Statement Attending MD Statement: examined this patient, discuss w/resident/PA/SYSTEMS TECHNICIAN, agreed w/resident/PA/SYSTEMS TECHNICIAN, reviewed EMR data (avail), discussed with nursing, discussed with case mgmt, amended to note Attending Assessment/Plan: Patient seen and examined. Resting comfortably and not in any acute distress. She reports poor sleep overnight. She does state that her respiratory symptoms have improved compared to presentation. She reports that she is less short of breath. She still admits to mild productive cough. He remains afebrile hemodynamically stable. She is maintaining saturation on 2 L of oxygen. On examination she has adequate entry bilaterally with no significant added sounds this morning. Recommendations: -Check pulse oximetry on room air at rest and with ambulation. -Administer to dose of Solu-Medrol 40 mg today. Begin patient on prednisone tomorrow -Anticipate discharge home tomorrow on a prednisone taper. -Complete 5 days of therapy with azithromycin.
[2017-08-03 14:43] VITALS: BP 120/62
--- NOTE | 2017-08-03 18:24 | Patient Discharge Instructions ---
Discharge Instructions General Discharge Information You were seen/treated for: COPD Exacerbation Aspiration Special Instructions: 1. Follow up with your pcp within 1 week of discharge 2. Follow up with the adolescent coordinator - you have been given a referral. Please call to make an appointment 3. Take medication as prescribed Acute Coronary Syndrome Inclusion Criteria At DC or during hospital stay patient has or had the following: ACS DIAGNOSIS No Discharge Core Measures Meds if any: Prescribed or Continued at Discharge Meds if any: NOT Prescribed or Continued at Discharge Congestive Heart Failure Inclusion Criteria At DC or during hospital stay patient has or had the following: CHF DIAGNOSIS No Discharge Core Measures Meds if any: Prescribed or Continued at Discharge Meds if any: NOT Prescribed or Continued at Discharge Cerebrovascular accident Inclusion Criteria At DC or during hospital stay patient has or had the following: CVA/TIA Diagnosis No Discharge Core Measures Meds if any: Prescribed or Continued at Discharge Meds if any: NOT Prescribed or Continued at Discharge Venous thromboembolism Inclusion Criteria VTE Diagnosis No VTE Type NONE VTE Confirmed by (Test) NONE Discharge Core Measures - Per Current guidelines, there needs to be overlap - treatment for the first 5 days of Warfarin therapy. - If discharged on Warfarin prior to 5 days of - overlap therapy, the patient will need to be - assessed for post discharge needs including - *Post discharge parental anticoagulation - *Warfarin and/or parental anticoagulation education - *Follow up date to check INR post discharge At least 5 days overlap therapy as Inpatient No Meds if any: Prescribed or Continued at Discharge Note: Overlap Therapy is Warfarin and Anticoagulant Meds if any: NOT Prescribed or Continued at Discharge
[2017-08-03 22:07] VITALS: BP 122/68
[2017-08-04 06:15] VITALS: BP 148/76
--- NOTE | 2017-08-04 07:06 | PN- Housestaff ---
See Addendum Subjective Follow-up For: COPD exacerbation acute hypoxemic respiratory failure Subjective: patient remains on supplemental oxygen afebrile cough with congestion but minimal expectoration was hypoxic into the 80s yesterday at rest on room air Review of Systems Constitutional: Reports: see HPI. Objective Last 24 Hrs of Vital Signs/I&O Vital Signs Date Time Temp Pulse Resp B/P B/P Pulse O2 O2 Flow FiO2 Mean Ox Delivery Rate 08/04 0941 20 93 Nasal 1.5L Cannula 08/04 0940 20 75 Room Air 08/04 0939 20 85 Room Air 08/04 0938 20 92 Nasal 1.5L Cannula 08/04 0615 97.9 79 20 148/76 92 08/04 0000 Nasal 1.5L Cannula 08/03 2207 98.5 92 20 122/68 94 Nasal 1.5L Cannula 08/03 1911 96 Nasal 1.5L Cannula 08/03 1600 93 Nasal 1.5L Cannula 08/03 1443 98.1 91 20 120/62 93 Nasal Cannula 08/03 1400 93 Nasal 1.5L Cannula 08/03 1358 90 Nasal 1.0L Cannula 08/03 1356 88 Room Air 08/03 1106 93 Nasal 1.5L Cannula 08/03 1030 93 Nasal 1.5L Cannula Physical Exam General Appearance: Alert, Oriented X3, Cooperative, No Acute Distress Cardiovascular: Regular Rate, Normal S1, Normal S2, No Murmurs Lungs: bibasilar rhonchi R>L, mild scattered expiratory wheeze (improved) Abdomen: Normal Bowel Sounds, Soft, No Tenderness, No Masses Extremities: No Clubbing, No Cyanosis, No Edema, Normal Pulses Current Medications: Current Medications Sig/Nhung Start time Last Medication Dose Route Stop Time Status Admin Acetaminophen 650 MG Q6P PRN 08/01 1845 AC PO Albuterol Sulfate 3 ML BID 08/03 2100 AC 08/03 INH 1908 Albuterol Sulfate 3 ML Q4P PRN 08/01 2000 DC 08/03 INH 1106 Azithromycin 500 MG DAILY 08/03 09 AC 08/04 PO 0803 Benzonatate 100 MG TID 08/01 1734 AC 08/04 PO 0802 Cinacalcet 30 MG DAILY 08/02 899 AC 08/04 PO 0803 Furosemide 40 MG 08/04 09 AC PO Gabapentin 600 MG TID 08/01 2099 AC 08/04 PO 0803 Guaifenesin 600 MG Q12 08/01 2100 AC 08/04 PO 0802 Heparin Sodium 5,000 UNIT Q8 08/01 1727 AC 08/04 (Porcine) SC 0521 Hydrocodone Bitart/ 1 TAB Q6P PRN 08/02 1999 AC 08/03 Acetaminophen PO 2002 Ipratropium [place] 2.5 ML BID 08/03 2099 AC 08/03 INH 1908 Ipratropium [place] 2.5 ML Q4P PRN 08/02 1999 DC 08/03 INH 1106 Melatonin 5 MG AT BEDTIME 08/03 2099 AC 08/03 PO 211 Mesalamine 1,000 MG 4 TIMES/DAY 08/02 09 AC 08/03 PO 170 Methylprednisolone 40 MG BID 08/03 2099 DC 08/03 IV 08/03 2300 2007 Methylprednisolone 40 MG Q8 08/01 220 DC 08/03 IV 1349 Prednisone 40 MG DAILY 08/04 09 AC 08/04 PO 0803 Assessment/Plan Assessment: 81 year old female with past medical history significant for former smoker, osteoporosis, cervical fusion, h/o colitis on mesalamine (also reported apthous ulcer Crohn's?), primary hyperparathyroidism on sensipar, diverticulosis, and colonic polyps was brought in by ambulance after being found to be hypoxic on vitals this morning prior to a follow up colonoscopy. She has had a subacute upper respiratory infection for the past three with cough and exertional dyspnea , admitted for management of COPD exacerbation and hypoxic respiratory failure. Acute hypoxemic respiratory failure: secondary to copd exacerbation, possible pneumonia TRC evalutation, oxygen set up Titrate supplemental oxygen to an SpO2 > 92% Former smoker 70+ pack years Patient rapidly desaturates at rest on room air Currently 94% on 2L NC at rest Rooom air saturations= 85% at rest and 75% ambulatory Will need supplemental oxygen at discharge CTA Chest There is no CTA evidence of acute pulmonary embolism. Assessment is limited in the lower lobes due to motion degradation. Pulmonary emphysema. Peribronchovascular nodules right upper lobe and right lower lobe. Mild prominence of the soft tissue likely representing lymphoid tissue noted in the right hilar and infrahilar region along the bronchi. This appearance can be seen with inflammatory etiology. Neoplastic process cannot be excluded. Based on the Fleischner criteria close monitoring with follow-up CT scan in 3-6 months recommended Patient will need to be reimaged to follow up pulmonary nodules as an outpatient COPD exacerbation: Possible pneumonia likely community acquired, continue azithromycin x 5 days although aspiration is possible, pt reports worsening yesterday during bowel prep but overall history is more consistent with a subacute process Elevated bicarbonate on chemistry, consistent with chronic CO2 retention Chest [id number] and airspace opacities in the bilateral lower lobes. Findings could represent pulmonary edema. Aspiration can have a similar distribution. Continue nebulized albuterol and ipratropium On prednisone, discharge on taper Obtain sputum culture, induce if necessary Legionella and strep pneumo urinary antigens negative Mucinex, tessalon pearls for cough Continue spiriva Outpatient pulmonology referral Primary hyperparathyroidism Calcium 9.3, albumin 3.5 Continue sensipar 30mg daily Colitis: Continue mesalamine Family history of colon cancer, no dysplasia on 2013 pathology Outpatient GI follow up for colonoscopy Chronic pain: Continue vicodin and gabapentin 600mg po tid Heart healthy diet DVT ppx-lovenox 40mg subcutanous daily Full code Stable for discharge on supplemental oxygen for COPD and hypoxemic respiratory failure Problem List: 1. COPD exacerbation 2. Acute hypoxemic respiratory failure Pain Ratin Pain Location: n/a Pain Goal: Pain 4 or less Pain Plan: prn Tomorrow's Labs & Rationales: none
[2017-08-04] MEDS ORDERED: PREDNISONE10 M2 PO ×2 (08:17→09:19)
[2017-08-04] MEDS ORDERED: ZITHROMAX500 M2 PO ×2 (08:17→09:19)
[2017-08-04] MEDS ORDERED: PRILOSEC OTC20 M1 PO (08:34)
[2017-08-04] MEDS ORDERED: SYMBICORT 80-10.2 GM INH ×2 (08:36→09:19)
[2017-08-04] MEDS ORDERED: SPIRIVA18 MCG INH ×2 (08:36→09:19)
--- NOTE | 2017-08-04 10:01 | Discharge Summary ---
Visit Information Visit Dates Admission Date: 08/01/17 Discharge Date: 08/04/17 Hospital Course Course Attending Physician: Krysta Espana MD Primary Care Physician: Munir Chaparro MD Hospital Course: 81 year old female with past medical history significant for colitis on mesalamine, colonic polyps, primary hyperparathyroidism, smoking (70+ pack years , last cigarette six months ago), and COPD presented with complaints of upper respiratory tract infection with cough and exertional dyspnea for the past three weeks. She was found to be profoundly hypoxic on preprocedure vitals the morning of a follow up colonoscopy. In the emergency department, her room air SpO2 was 79% and improved on two liters of supplemental oxygen. She had no fever or leukocytosis. Her chest x-ray was notable for bibasilar opacities and she underwent negative chest CTA for pulmonary embolism, although it did showed emphysema and peribronchovascular nodules in the right upper and lower lobes which can't be excluded for neoplasm that will need repeat imaging in 3-6 months. She was treated with intravenous solumedrol, azithromycin x 5 days, nebulized albuterol and ipatropium for COPD exacerbation and supplemental oxygen for her acute hypoxemic respiratory failure. Although her pulmonary exam improved with no more audible wheezing on auscultation, she still required supplemental oxygen or rapidly desaturated to an SpO2 < 80% when ambulating on room air. She was discharged with supplemental oxygen and given a pulmonology referral with Dr. Devine, both for pulmonary nodules and oxygen dependent COPD. She was discharged with a prednisone taper, symbicort, spiriva, and instructed to follow up with her primary care physician and powder press operator. Allergies: Coded Allergies: Sulfa (Sulfonamide Antibiotics) (Severe, SWELLING 08/01/17) Penicillins (Intermediate, RASH 08/01/17) Significant Procedures: CTA Chest IMPRESSION: 1. There is no CTA evidence of acute pulmonary embolism. Assessment is limited in the lower lobes due to motion degradation. 2. Pulmonary emphysema. Peribronchovascular nodules right upper lobe and right lower lobe. Mild prominence of the soft tissue likely representing lymphoid tissue noted in the right hilar and infrahilar region along the bronchi. This appearance can be seen with inflammatory etiology. Neoplastic process cannot be excluded. Based on the Fleischner criteria close monitoring with follow-up CT scan in 3-6 months recommended.. 3. Underlying emphysematous changes. 4. Mild bronchiectasis. 5. Atelectatic changes posterior aspect right lower lobe. Disposition Summary Disposition Principal Diagnosis: Acute hypoxic respiratory failure Exacerbation of chronic obstructive pulmonary disease Additional Diagnosis: Pulmonary nodules Smoking COPD Colitis on mesalamine Primary hyperparathyroidism Discharge Disposition: home health services Discharge Instructions General Discharge Information Code Status: Full Code Patient's Diet: Heart healthy Patient's Activity: As tolerated Follow-Up Instructions/Appts: Please follow up with your primary care physician and powder press operator, Dr. Devine for COPD and pulmonary nodules follow up. You will need a repeat CT scan of the chest in 3-6 months. Medications at Discharge Discharge Medications: Continue taking these medications: Gabapentin (Gabapentin) 600 MG TABLET 1 Tablet ORAL THREE TIMES DAILY Comments: Last Taken: 08/04/17 Time: 8 AM Mesalamine (Apriso) 0.375 GRAM CAP.ER.24H 4 Capsule ORAL DAILY Comments: Last Taken: 08/03/17 Time: 5 PM Cinacalcet HCl (Sensipar) 30 MG TABLET 1 Tablet ORAL DAILY Comments: Last Taken: 08/04/17 Time: 8 AM Hydrocodone/Acetaminophen (Vicodin Es 7.5-300 MG Tablet) 7.5 MG-300 MG TABLET 1 Tablet ORAL TWICE DAILY as needed for BONE PAINS Comments: Last Taken: 08/03/17 Time: 8 PM Furosemide (Furosemide) 40 MG TABLET 1 Tablet ORAL FRIDAY, FRIDAY AND FRIDAY Comments: NOT GIVEN IN HOSPITAL Start taking the following new medications: Prednisone (Prednisone) 10 MG TABLET 1 Tablet ORAL As Directed Qty = 30 No Refills Instructions: 4 TABS X3DAYS, 3 TABS X 3DAYS, 2 TABS X3DAYS, 1 TAB X 3DAYS. Comments: Last Taken: 08/04/17 Time: 8 AM Budesonide/Formoterol Fumarate (Symbicort 80-4.5 Mcg Inhaler) 80 MCG-4.5 MCG/ ACTUATION HFA.AER.AD 2 Puff Inhale through mouth TWICE DAILY Qty = 10.2 No Refills Instructions: . Comments: NOT GIVEN IN HOSPITAL Tiotropium [place] (Spiriva) 18 MCG CAP.W.DEV 1 Capsule Inhale through mouth DAILY Qty = 30 No Refills Instructions: . Comments: NOT GIVEN IN HOSPITAL Azithromycin (Zithromax) 500 MG TABLET 1 Tablet ORAL DAILY Qty = 3 No Refills Instructions: . Comments: Last Taken: 08/04/17 Time: 8 AM Copies To: Jemal Devine MD; Munir Chaparro MD Attending MD Review Statement Documenting Attending: Krysta Espana MD Other Findings: Medically stable to discharge home today. 1 Tablet ORAL DAILY Qty = 3 No Refills Instructions: . Comments: Last Taken: 08/04/17 Time: 8 AM Copies To: Jemal Devine MD; Munir Chaparro MD Attending MD Review Statement Documenting Attending: Krysta Espana MD Other Findings: Medically stable to discharge home today. Jemal Devine MD; Munir Chaparro MD Attending MD Review Statement Documenting Attending: Krysta Espana MD Other Findings: Medically stable to discharge home today. Krysta Espana MD Other Findings: Medically stable to discharge home today.
== END 2017-08-04 16:45 | disposition home health service (06) | DRG 193 ==
LOC: ERH 13:45 → ENRESERV 18:11 → ENTRNSPT 18:29 → 2NB 18:34 → ERHI 18:34 → 2NB 18:43 → EDTRNSPT 18:44 → 2NB 18:44 → EDTRNSPTSTS 18:44 → CMPTRNSPT 19:00 → 2NB 08-04 09:27 → ENPENDDIS 08-04 10:06 → 2NB 08-04 16:45
PROVIDERS: Internal Medicine; Physician Assistant Medical
DX: J18.9 Pneumonia, unspecified organism (principal); J96.21 Acute and chronic respiratory failure with hypoxia; J44.1 Chronic obstructive pulmonary disease with (acute) exacerbation; K51.90 Ulcerative colitis, unspecified, without complications; E21.3 Hyperparathyroidism, unspecified; Z87.891 Personal history of nicotine dependence; M81.0 Age-related osteoporosis without current pathological fracture; K52.9 Noninfective gastroenteritis and colitis, unspecified; Z88.1 Allergy status to other antibiotic agents
CPT/HCPCS: 2NBSP; 36415; 71045; 82436; 87070; 87449; 87450; 93005; 93010; 96374; 96375; 99291; J0456; J1644; J2920; J2930; J7040